=== PATIENT | male | born 1970 | race Hispanic/Latino ===

== ENCOUNTER 2021-10-18 11:28 | Emergency (ER) | payer OTHER ==
[~2021-10-18] VITALS: Ht 162.6 cm; Wt 108.2 kg
[2021-10-18] MEDS ORDERED: LISINOPRIL-HCT1 EACH (12:10)
[2021-10-18] MEDS ORDERED: METFORMIN HCL500 M2 PO (12:10)
[2021-10-18] MEDS ORDERED: TETANUS/DIPHTHERIA TOX ADULT 0.5 ML SYR IM STA (12:13)
[2021-10-18] MEDS ORDERED: IBUPROFEN IB200 MG PO (12:19)
[2021-10-18] MEDS ORDERED: ACETAMINOPHEN500 MG PO (12:19)
[2021-10-18] MEDS ORDERED: TETANUS/DIPHTHERIA TOX ADULT 0.5 ML SYR ONE (12:27)
[2021-10-18] MEDS ORDERED: ACETAMINOPHEN 325 MG TAB ONE (12:43)
[2021-10-18] MEDS ORDERED: IBUPROFEN 600 MG TAB ONE (12:43)
[2021-10-18] MEDS ORDERED: IBUPROFEN 600 MG TAB PO ONE (12:45)
[2021-10-18] MEDS ORDERED: ACETAMINOPHEN 325 MG TAB PO ONE (13:00)
== END 2021-10-18 13:24 | disposition home or self-care (01) ==
LOC: FSED 11:39
DX: S00.83XA Contusion of other part of head, initial encounter (principal); W17.89XA Other fall from one level to another, initial encounter; Y92.89 Other specified places as the place of occurrence of the external cause; I10 Essential (primary) hypertension; E11.9 Type 2 diabetes mellitus without complications
CPT/HCPCS: 70450; 72125; 90471; 90714; 96372; 99283

== ENCOUNTER 2023-03-12 21:04 | Emergency (ER) | payer OTHER ==
[~2023-03-12] VITALS: Ht 162.6 cm; Wt 95.3 kg
[~2023-03-12 21:04] MED LIST: ACETAMINOPHEN500 MG PO; IBUPROFEN IB200 MG PO; LISINOPRIL-HCT1 EACH; METFORMIN HCL500 M2 PO
[2023-03-12 21:36] VITALS: O2SAT 98
[2023-03-12] MEDS ORDERED: CYCLOBENZAPRINE10 MG PO (23:23)
[2023-03-12] MEDS ORDERED: NAPROSYN500 MG PO (23:24)
== END 2023-03-12 23:46 | disposition home or self-care (01) ==
LOC: FSED 21:20
DX: S00.83XA Contusion of other part of head, initial encounter (principal); S16.1XXA Strain of muscle, fascia and tendon at neck level, initial encounter; S39.011A Strain of muscle, fascia and tendon of abdomen, initial encounter; W01.0XXA Fall on same level from slipping, tripping and stumbling without subsequent striking against object, initial encounter; Y99.0 Civilian activity done for income or pay; I10 Essential (primary) hypertension; E11.9 Type 2 diabetes mellitus without complications
CPT/HCPCS: 70450; 72125; 72192; 81003; 99283